=== PATIENT | female | born 2000 | race Caucasian/White ===

== ENCOUNTER 2018-11-18 09:23 | Day surgery (SDC) | payer BC ==
[2018-11-17 11:11] LABS: Albumin 3.9 g/dL (3.4-5.0); Bilirubin Direct 0.2 mg/dL (0-0.2); Bilirubin Total 0.6 mg/dL (0.2-1.0); Protein, Total 8.1 g/dL (6.4-8.2)
[2018-11-18] MEDS ORDERED: Ringers Lactate 1,000 ML IV ONE (09:59)
[2018-11-18] MEDS ORDERED: CEFOXITIN/SWI 1gm 1 GM/10 ML SYR ONE (10:05)
[2018-11-18] MEDS ORDERED: PROPOFOL 200 MG/20 ML VIAL IV ONE (11:47)
[2018-11-18] MEDS ORDERED: MIDAZOLAM HCL 2 MG/2 ML INJ ONE (11:47)
[2018-11-18] MEDS ORDERED: DEXAMETHASONE 10 MG/ML VIAL ONE (11:48)
[2018-11-18] MEDS ORDERED: ROCURONIUM 50 MG/5 ML VIAL IV ONE (11:48)
[2018-11-18] MEDS ORDERED: FENTANYL CITR 250 MCG/5 ML ONE (11:48)
[2018-11-18] MEDS ORDERED: ONDANSETRON 4 MG/2 ML VIAL ONE (11:48)
[2018-11-18] MEDS ORDERED: LIDOCAINE 2% MPF 5 ML VIAL ONE (11:48)
[2018-11-18] MEDS ORDERED: GLYCOPYRROLATE 0.2 MG/ML SYR ONE ×2 (12:29→12:48)
--- NOTE | 2018-11-18 12:45 | P.BOP ---
Preoperative diagnosis: acute cholecystitis, symptomatic cholelithiasis, tender umbilical hernia Postoperative diagnosis: same Primary procedure: 1. Laparoscopic cholecystectomy Secondary procedure: 2. Open repar of tender umbilical hernia Estimated blood loss: <10cc Specimen: gb Findings: as above Anesthesia: General Complications: None Transferred to: Recovery Room Condition: Good
[2018-11-18] MEDS ORDERED: KETOROLAC 30 MG/ML INJ ONE (12:48)
[2018-11-18] MEDS ORDERED: NEOSTIGMINE 1 MG/ML -10 ML VIAL ONE (12:48)
[2018-11-18] MEDS: MORPHINE 4 MG/ML SYR ONE ×2 (13:08→13:14)
[2018-11-18] MEDS ORDERED: CODEINE 30MG/APAP 300MG TAB PO ONE (14:00)
[2018-11-18] MEDS ORDERED: CODEINE 30MG/APAP 300MG TAB ONE (14:19)
--- NOTE | 2018-11-23 13:45 | OP ---
Date of Procedure: 11/18/2018 Surgeon: Alex Finn MD Preoperative Diagnoses: Acute cholecystitis, symptomatic cholelithiasis and tender umbilical hernia. Postoperative Diagnoses: Acute cholecystitis, symptomatic cholelithiasis and tender umbilical hernia . Procedure: Laparoscopic cholecystectomy. Open repair of a tender umbilical hernia. Anesthesia: General plus local. Complications: None. Specimen: Gallbladder. Indications: This is a case of female who comes to us with above diagnosis. Fully explained the sameer efits, alternatives, and risks of laparoscopic, possible open, cholecystectomy with umbilical hernia repair which include, but not limited to infection, bleeding, damage to adjacent structures, anesthes ia complication, recurrence, [place], and even . She also understands this may not relieve any sympt oms. She might need more than one surgical intervention. She understood and signed a consent. Description Of Procedure: The patient was brought to the operating room, placed in supine position. Anesthesia was done without complication. A time-out was called. Abdominal area was prepped and dr aped in usual sterile fashion. Marcaine 0.5% was injected for local anesthetic, followed by sharp in cision to the skin in the infraumbilical region. Incision was carried down to fascia, noted the sarwat ent to have an umbilical hernia. Hernia sac was opened noticing incarcerated omentum, still viable, so we released the adhesions from the omentum to the hernia sac and then reduced the omentum back aft er fully inspected into the abdominal cavity with no bleeding. The hernia sac was removed. The inci zurdo was extended in the periumbilical region to accommodate Tatianna trocar. Vicryl #1 placed on each side of the fascia. Tatianna trocar was carefully introduced. Pneumoperitoneum was obtained. I plac ed 3 more trocars, 5 mm each one of them, in the right upper quadrant under direct visualization. Th is allowed me to put a grasper in the fundus of the gallbladder, another grasper in the infundibulum, retracted the gallbladder in the inferolateral fashion exposing the triangle of Calot and obtaining critical view of safety. The cystic duct and cystic artery were clearly isolated, freed circumferent ially, and a connection between those and the gallbladder was clearly identified. I proceeded to lig ate those by using 3 clips proximal, 1 clip distal, ligation in middle. Same was done with the cysti c artery. No bile leak. No bleeding. The gallbladder was removed from liver using Bovie cauterizer and removed from abdominal cavity using an EndoCatch through the umbilical incision. The area was i nspected once again. No bile leak. No bleeding. Gallbladder fossa with no bleeding. At that momen t, I proceeded to remove the trocars under direct vision. Deflated the pneumoperitoneum. Closed the umbilical hernia and the fashion with #1 Vicryl, interrupted. Irrigated subcutaneous tissue, closed that with 3-0 chromic and skin approximated. Sponge count and instrument counts were correct. The patient tolerated the procedure well. The patient was sent to Recovery in stable condition. ABY/IRENA Voice ID: [id number] Report ID: [id number]
--- NOTE | 2018-11-23 13:51 | DS ---
Date of Discharge: 11/18/2018 Diagnoses: Acute cholecystitis, symptomatic cholelithiasis and umbilical hernia. Procedures: Laparoscopic cholecystectomy. Repair of umbilical hernia. Disposition: Home. Activity: As tolerated. No heavy lifting. Followup: Followup in my office in 1 week. Call for appointment [phone]. Medications: Include Augmentin 875 p.o. q. 12, Tylenol No. 3 q.4 hours p.r.n. pain. Keep area dry f or 48 hours, then may shower. ABY/IRENA Voice ID: [id number] Report ID: [id number]
== END 2018-11-18 14:59 | disposition home or self-care (01) ==
LOC: OR 09:23
PROVIDERS: ATTEND Surgery
PROC: 0FT44ZZ Resection of Gallbladder, Percutaneous Endoscopic Approach (ICD-10-PCS; principal; 2018-11-18 12:15)
PROC: 0WQF0ZZ Repair Abdominal Wall, Open Approach (ICD-10-PCS; 2018-11-18 12:15)
DX: K80.10 Calculus of gallbladder with chronic cholecystitis without obstruction (principal); K42.0 Umbilical hernia with obstruction, without gangrene; K66.0 Peritoneal adhesions (postprocedural) (postinfection)
CPT/HCPCS: 36415; 80076; 81025; 82150; 83690; 88304; J1100; J2250; J2405; J2704; J2710; J3010